=== PATIENT | male | born 1965 | race Caucasian/White ===

== ENCOUNTER → 2023-04-22 | Outpatient (CLI) | payer BC, SELFPAY ==
--- NOTE | 2023-04-22 16:24 | RAD_ITS ---
STUDY: X-RAY - LEFT KNEE REASON FOR EXAM: Male, 57 years old. Knee pain TECHNIQUE: 4 view(s) of the knee. COMPARISON: None. FINDINGS: Normal visualized distal femur. Normal visualized proximal tibia and fibula. Normal proximal tibiofibular articulation. There is mild degenerative arthrosis of the medial femorotibial compartment. Normal lateral femorotibial compartment. There is mild degenerative arthrosis of the patellofemoral articulation. There is a soft tissue prominence in the suprapatellar region suggesting a small volume joint effusion. The soft tissue structures are unremarkable. Small quadriceps tendon insertion spur on the anterior superior patella RAD/Knee 4 or More Views IMPRESSION: Degenerative arthrosis with small joint effusion, no demonstrated fracture. Electronically Signed: Alfie Villagomez MD at 8:39 EDT ,
== END | disposition home or self-care (01) ==
LOC: MTRAD 16:17
PROVIDERS: PCP Family Medicine; Referring Provider Family Medicine; Visit Provider Family Medicine
DX: M25.569 Pain in unspecified knee (principal)
CPT/HCPCS: 73564

== ENCOUNTER → 2024-09-19 | Outpatient (CLI) | payer BC, SELFPAY ==
[2024-09-19 19:32] LABS: RBC /Synovial Fluid 0.113 10^6/uL (0); Synovial Fld Mononuclear WBC # 0.280 10^3/ul; Synovial Fld Mononuclear WBC % 66.0 %; Synovial Fld Polynuclear WBC # 0.144 10^3/uL; Synovial Fld Polynuclear WBC % 34.0 %; Total Cell Count Synovial Fld 0.5440 10^3/uL (0.000-0.000); WBC / Synovial Fluid 0.4240 10^3/uL (0.000-0.002)
[2024-09-19 19:43] LABS: AUTO B FLUID DILUENT BKGD CT WBC <0.1 RBC <0.01 (W<.1,R<.01); Source / Synovial Fluid RIGHT KNEE; Source- Body Fluid SYNOVIAL
[2024-09-19 19:44] LABS: Color / Synovial Fluid Red (Pale Yellow)
[2024-09-19 22:06] LABS: Appearance /Synovial Fluid Turbid (CLEAR)
[2024-09-19 22:07] LABS: Body Fluid QC Type(s) BF1Q, BF2Q
[2024-09-19 22:44] LABS: CRYSTALS, BODY FLUID Other, see comment
[2024-09-25 09:34] LABS: Monocyte /Synovial Fluid 60 %
== END | disposition home or self-care (01) ==
LOC: LABSPEC 17:14
PROVIDERS: PCP Family Medicine; Referring Provider Student in an Organized Health Care Education/Training Program; Visit Provider Student in an Organized Health Care Education/Training Program
DX: S83.8X1A Sprain of other specified parts of right knee, initial encounter (principal); X58.XXXA Exposure to other specified factors, initial encounter
CPT/HCPCS: 87070; 87075; 87205; 89050; 89051; 89060